=== PATIENT | female | born 1995 ===

== ENCOUNTER 2020-11-20 12:59 | Inpatient (IN) | payer MEDICAID ==
[~2020-11-20] VITALS: Ht 185.4 cm; Wt 79.3 kg
[2020-11-20] MEDS ORDERED: ACETAMINOPHEN 325 MG TABLET PO PRN (14:00)
[2020-11-20] MEDS ORDERED: POLYETHYLENE GLYCOL 17 GM PACKET PO PRN (14:00)
[2020-11-20] MEDS ORDERED: ONDANSETRON ODT 4 MG PO PRN (14:00)
[2020-11-20] MEDS ORDERED: PLEASE ENTER ALLERGIES MC SCH (16:30)
[2020-11-20] MEDS ORDERED: PLEASE ENTER HEIGHT AND WEIGHT MC SCH (16:30)
[2020-11-20 16:34] VITALS: BP 139/85
[2020-11-20] MEDS ORDERED: ATOR20TA86 PO (17:55)
[2020-11-20] MEDS ORDERED: QUET100T4 PO (17:55)
[2020-11-20] MEDS ORDERED: MONT10TA96 PO (17:55)
[2020-11-20] MEDS ORDERED: CETI10TA18 PO (17:55)
[2020-11-20 19:41] VITALS: BP 105/75
[2020-11-20] MEDS: QUETIAPINE 100MG TABLET PO SCH (20:57)
[2020-11-20 22:54] LABS: MICROSCOPIC AUTO
[2020-11-21 07:19] LABS: CHOL/HDL RATIO 3.9; FREE T4 (FREE THYROXINE) 0.84 ng/dL (0.76-1.46); LDL/HDL RATIO 2.5 (0.5-3.0)
[2020-11-21 07:30] VITALS: BP 93/64
[2020-11-21 19:28] VITALS: BP 108/77
[2020-11-21] MEDS: QUETIAPINE 100MG TABLET PO SCH (20:15)
[2020-11-21] MEDS: hydrOXyzine 10MG TABLET PO PRN (20:15)
[2020-11-21] MEDS: ATORVASTATIN 10 MG TABLET PO SCH (20:15)
[2020-11-22 07:53] VITALS: BP 104/71
[2020-11-22] MEDS: CETIRIZINE 10 MG TABLET PO SCH (08:56)
[2020-11-22] MEDS: DOCUSATE 100 MG CAPSULE PO PRN (08:56)
[2020-11-22 19:30] VITALS: BP 108/76
[2020-11-22] MEDS: QUETIAPINE 100MG TABLET PO SCH (20:41)
[2020-11-22] MEDS: ATORVASTATIN 10 MG TABLET PO SCH (20:41)
[2020-11-22] MEDS: hydrOXyzine 10MG TABLET PO PRN (20:41)
[2020-11-23 07:28] VITALS: BP 96/60
[2020-11-23] MEDS: CETIRIZINE 10 MG TABLET PO SCH (08:42)
[2020-11-23] MEDS: SERTRALINE 50MG TABLET PO SCH (16:15)
[2020-11-23 19:50] VITALS: BP 116/82
[2020-11-23] MEDS: ATORVASTATIN 10 MG TABLET PO SCH (20:33)
[2020-11-23] MEDS: hydrOXyzine 10MG TABLET PO PRN (20:33)
[2020-11-24 07:29] VITALS: BP 100/69
[2020-11-24] MEDS: SERTRALINE 50MG TABLET PO SCH (09:27)
[2020-11-24] MEDS: CETIRIZINE 10 MG TABLET PO SCH (09:27)
[2020-11-24] MEDS: hydrOXyzine 10MG TABLET PO PRN (17:18)
[2020-11-24 19:45] VITALS: BP 100/68
[2020-11-24] MEDS: ATORVASTATIN 10 MG TABLET PO SCH (20:32)
[2020-11-25] MEDS: CETIRIZINE 10 MG TABLET PO SCH (08:37)
[2020-11-25] MEDS: SERTRALINE 50MG TABLET PO SCH (08:37)
[2020-11-25 19:59] VITALS: BP 116/80
[2020-11-25] MEDS: ATORVASTATIN 10 MG TABLET PO SCH (20:35)
[2020-11-26 07:33] VITALS: BP 98/62
[2020-11-26] MEDS: CETIRIZINE 10 MG TABLET PO SCH (08:38)
[2020-11-26] MEDS ORDERED: SERTRALINE 50MG TABLET PO SCH (09:00)
[2020-11-26 19:32] VITALS: BP 108/73
[2020-11-26] MEDS: ATORVASTATIN 10 MG TABLET PO SCH (20:57)
[2020-11-26] MEDS: DOCUSATE 100 MG CAPSULE PO PRN (20:57)
[2020-11-27 07:37] VITALS: BP 99/64
[2020-11-27] MEDS: CETIRIZINE 10 MG TABLET PO SCH (08:17)
[2020-11-27] MEDS: SERTRALINE 50MG TABLET PO SCH (08:17)
[2020-11-27] MEDS: ARIPIPRAZOLE 2 MG TABLET PO SCH (08:17)
[2020-11-27] MEDS: ATORVASTATIN 10 MG TABLET PO SCH (19:49)
[2020-11-27] MEDS: DOCUSATE 100 MG CAPSULE PO PRN (19:49)
[2020-11-27 19:53] VITALS: BP 114/79
[2020-11-28 07:28] VITALS: BP 106/70
[2020-11-28] MEDS: ARIPIPRAZOLE 2 MG TABLET PO SCH (08:55)
[2020-11-28] MEDS: CETIRIZINE 10 MG TABLET PO SCH (08:56)
[2020-11-28] MEDS: SERTRALINE 50MG TABLET PO SCH (08:56)
[2020-11-28] MEDS: ATORVASTATIN 10 MG TABLET PO SCH (20:10)
[2020-11-28] MEDS: MELATONIN 5 MG TABLET PO SCH (20:11)
[2020-11-28 20:41] VITALS: BP 100/69
[2020-11-29 07:12] VITALS: BP 107/70
[2020-11-29] MEDS: CETIRIZINE 10 MG TABLET PO SCH (08:36)
[2020-11-29] MEDS: ARIPIPRAZOLE 2 MG TABLET PO SCH (08:36)
[2020-11-29] MEDS: SERTRALINE 50MG TABLET PO SCH (08:36)
[2020-11-29 19:36] VITALS: BP 112/75
[2020-11-29] MEDS: MELATONIN 5 MG TABLET PO SCH (21:01)
[2020-11-29] MEDS: ATORVASTATIN 10 MG TABLET PO SCH (21:01)
[2020-11-29] MEDS: hydrOXyzine 10MG TABLET PO PRN (21:01)
[2020-11-30 07:18] VITALS: BP 105/70
[2020-11-30] MEDS: ARIPIPRAZOLE 2 MG TABLET PO SCH (08:42)
[2020-11-30] MEDS: CETIRIZINE 10 MG TABLET PO SCH (08:42)
[2020-11-30] MEDS: SERTRALINE 50MG TABLET PO SCH (08:42)
[2020-11-30 19:55] VITALS: BP 111/73
[2020-11-30] MEDS: hydrOXyzine 10MG TABLET PO PRN (20:09)
[2020-11-30] MEDS: ATORVASTATIN 10 MG TABLET PO SCH (20:09)
[2020-11-30] MEDS: MELATONIN 5 MG TABLET PO SCH (20:09)
[2020-12-01 07:45] VITALS: BP 100/66
[2020-12-01] MEDS: CETIRIZINE 10 MG TABLET PO SCH (08:39)
[2020-12-01] MEDS: ARIPIPRAZOLE 2 MG TABLET PO SCH (08:39)
[2020-12-01] MEDS: SERTRALINE 50MG TABLET PO SCH (08:39)
[2020-12-01] MEDS ORDERED: ATOR10TA9 PO (12:03)
[2020-12-01] MEDS ORDERED: SERT50TA28 PO (12:03)
[2020-12-01] MEDS ORDERED: MONT10TA96 PO (12:03)
[2020-12-01] MEDS ORDERED: ARIP2TAB2 PO (12:03)
[2020-12-01] MEDS ORDERED: MELA5TAB14 PO (12:03)
[2020-12-01] MEDS ORDERED: HYDR-2995 PO (12:03)
[2020-12-01] MEDS ORDERED: CETI10TA18 PO (12:03)
== END 2020-12-01 12:39 | disposition home or self-care (01) | DRG 753 ==
LOC: 3E 16:16
PROVIDERS: ADMIT Psychiatry & Neurology Psychosomatic Medicine; ATTEND Psychiatry & Neurology Psychosomatic Medicine
DX: F31.30 Bipolar disorder, current episode depressed, mild or moderate severity, unspecified (principal); E78.5 Hyperlipidemia, unspecified; F41.1 Generalized anxiety disorder; G47.00 Insomnia, unspecified; J45.909 Unspecified asthma, uncomplicated; R45.851 Suicidal ideations; Z59.0 Homelessness; Z79.899 Other long term (current) drug therapy
CPT/HCPCS: 36415; 71045; 80061; 81001; 84439; 84443; 87086; 93005; Q0162